=== PATIENT | male | born 1975 | race Caucasian/White ===

== ENCOUNTER 2019-02-12 20:52 | Emergency (ER) | payer MEDICAID ==
[2019-02-12] MEDS: KETOROLAC 30 MG INJ IM (22:24)
[2019-02-12] MEDS: DEXAMETHASONE 10 MG/ML 1 ML INJ IM (22:25)
== END 2019-02-12 22:48 | disposition home or self-care (01) ==
LOC: FTE 20:52
DX: J02.9 Acute pharyngitis, unspecified (principal)
CPT/HCPCS: 96372; 99284-25